=== PATIENT | female | born 1975 | race Caucasian/White ===

== ENCOUNTER 2019-01-22 20:56 | Emergency (ER) | payer OTHER ==
[~2019-01-22] VITALS: Ht 167.6 cm; Wt 72.6 kg
== END 2019-01-22 22:05 | disposition home or self-care (01) ==
LOC: ER 20:56
DX: S13.4XXA Sprain of ligaments of cervical spine, initial encounter (principal); S33.5XXA Sprain of ligaments of lumbar spine, initial encounter; V49.9XXA Car occupant (driver) (passenger) injured in unspecified traffic accident, initial encounter; Y93.89 Activity, other specified; Y92.488 Other paved roadways as the place of occurrence of the external cause; Y99.8 Other external cause status

== ENCOUNTER 2020-07-23 17:49 | Emergency (ER) | payer OTHER ==
[~2020-07-23] VITALS: Ht 167.6 cm; Wt 72.6 kg
== END 2020-07-23 18:52 | disposition home or self-care (01) ==
LOC: ER 17:49
DX: S61.452A Open bite of left hand, initial encounter (principal); S61.451A Open bite of right hand, initial encounter; W54.0XXA Bitten by dog, initial encounter; Y93.89 Activity, other specified; Y92.89 Other specified places as the place of occurrence of the external cause; Y99.8 Other external cause status

== ENCOUNTER 2022-01-29 09:45 | Inpatient (IN) | payer OTHER ==
[~2022-01-29] VITALS: Ht 167.6 cm; Wt 72.6 kg
[2022-02-01] MEDS ORDERED: Tylenol #3 PO (09:09)
[2022-02-01] MEDS ORDERED: NAPR500T14 PO (09:09)
== END 2022-02-01 11:40 | disposition home or self-care (01) | DRG 743 ==
LOC: O/R 01-31 08:00 → SURG 01-31 09:00 → OB/GYN 01-31 22:02
PROVIDERS: ADMIT Obstetrics & Gynecology; ATTEND Obstetrics & Gynecology
PROC: 0UT9FZZ Resection of Uterus, Via Natural or Artificial Opening With Percutaneous Endoscopic Assistance (ICD-10-PCS; principal; 2022-01-31 09:00)
DX: D25.1 Intramural leiomyoma of uterus (principal); N72 Inflammatory disease of cervix uteri; Z20.822 Contact with and (suspected) exposure to COVID-19